=== PATIENT | male | born 1995 ===

== ENCOUNTER 2018-03-06 17:03 | Emergency (ER) | payer SELFPAY ==
[2018-03-06 17:23] VITALS: BP 119/69; PULSE 64; RESP 18; TEMP 99.1; O2SAT 96
--- NOTE | 2018-03-06 17:45 | C.PDOC ---
History Of Present Illness 22 y/o male presents to the ER for evaluation of right hand pain which began after shelf fell off wall and injured his hand 4 days ago. Patient states that he was evaluated at [facility] urgent care center today. He was found to have a fracture and he had splint placed on his hand. [facility] urgent care center referred him to the ER. Time Seen by Provider: 03/06/18 17:41 Chief Complaint (Nursing): Upper Extremity Problem/Injury History Per: Patient History/Exam Limitations: no limitations Onset/Duration Of Symptoms: Days Current Symptoms Are (Timing): Still Present Severity: Moderate Past Medical History Reviewed: Historical Data, Nursing Documentation, Vital Signs Vital Signs: Last Vital Signs Temp 99.1 F 03/06/18 17:20 Pulse 64 03/06/18 17:20 Resp 18 03/06/18 17:20 BP 119/69 03/06/18 17:20 Pulse Ox 96 03/06/18 18:04 - Medical History PMH: No Chronic Diseases Surgical History: No Surg Hx Family History: States: No Known Family Hx - Social History Hx Alcohol Use: No Hx Substance Use: No - Immunization History Hx Tetanus Toxoid Vaccination: No Hx Influenza Vaccination: No Hx Pneumococcal Vaccination: No Review Of Systems Except As Marked, All Systems Reviewed And Found Negative. Musculoskeletal: Positive for: Hand Pain (right hand pain) Physical Exam - Physical Exam Appears: Non-toxic, No Acute Distress Skin: Normal Color, Warm, Dry Head: Atraumatic, Normacephalic Eye(s): bilateral: Normal Inspection Neck: Supple Chest: Symmetrical Extremity: Capillary Refill (< 2 seconds), Other (ulnar gutter splint intact on right hand) Pulses: Right Radial: Normal Neurological/Psych: Oriented x3, Normal Speech Gait: Steady ED Course And Treatment O2 Sat by Pulse Oximetry: 96 (RA) Pulse Ox Interpretation: Normal Medical Decision Making Medical Decision Making: Reviewed papers and X-Ray from [facility] Visit [facility] X- Ray Findings: Impression: There is a mildly angulated fracture of the 5th metacarpal neck. There is no dislocation. Joint spaces are maintained Patient already in ulnar gutter splint. I explained to the patient he has a boxer's fracture which will need orthopedic care. Provide patient with information to follow up at Dr Bobby's office or at [facility]. rx given for pain. Answered all of patient's questions. He is stable for discharge Disposition Counseled Patient/Family Regarding: Diagnosis, Need For Followup, Rx Given - Disposition Referrals: [facility] [Outside] Wale Bobby MD [Staff Provider] - Disposition: HOME/ ROUTINE Disposition Time: 18:00 Condition: GOOD Additional Instructions: Your Xray shows Boxer fracture of right hand. Splint has been applie which is a temporary cast. Do not wet splint, keep out of bath, and consider plastic bag. Take pain medication as needed. It is very important you follow up with orthopedic within 1 week. Tu radiografa muestra clark fractura de boxeador en la mano derecha. Se wilkins aplicado Splint, que es un yeso temporal. No humedezca la frula, no la ba e y considere clark bolsa de plstico. Wilmore analgsicos segn sea necesario. Es muy importante que realice un seguimiento con ortopedia en 1 semana. Prescriptions: Acetaminophen with Codeine [Tylenol with Codeine No. 3 300 mg-30 mg] 1 tab PO Q8 PRN #20 tab PRN Reason: Pain, Moderate (4-7) Ibuprofen [Motrin] 600 mg PO Q8 #30 tab Instructions: Boxer's Fracture (DC) Forms: [facility] (Azeri) Print Language: SENEGALESE - POA Present On Arrival: None - Clinical Impression Clinical Impression: Closed fracture of 5th metacarpal - PA / [employer] / Resident Statement MD/DO has reviewed & agrees with the documentation as recorded. - Scribe Statement The provider has reviewed the documentation as recorded by the Nathanibsilva Doe Provider Attestation All medical record entries made by the Scribe were at my direction and personally dictated by me. I have reviewed the chart and agree that the record accurately reflects my personal performance of the history, physical exam, medical decision making, and the department course for this patient. I have also personally directed, reviewed, and agree with the discharge instructions and disposition.
== END 2018-03-06 18:07 | disposition home or self-care (01) ==
LOC: C.ER 17:03
DX: S62.336A Displaced fracture of neck of fifth metacarpal bone, right hand, initial encounter for closed fracture (principal); W17.89XA Other fall from one level to another, initial encounter